=== PATIENT | female | born 1965 ===

== ENCOUNTER 2016-11-22 19:36 | Emergency (ER) | payer SELFPAY ==
[~2016-11-22] VITALS: Ht 162.6 cm; Wt 90.0 kg
[2016-11-22 19:40] VITALS: Ht 162.6 cm; Wt 90.0 kg
[2016-11-22] MEDS ORDERED: EPINEPHrine 1 MG INJ IM STA (19:42)
[2016-11-22] MEDS ORDERED: FAMOTIDINE 20 MG INJ IV STA (19:42)
[2016-11-22] MEDS ORDERED: DIPHENHYDRAMINE 50 MG INJ IV STA (19:42)
[2016-11-22] MEDS ORDERED: METHYLPREDNISOLONE 125 MG INJ IV STA (19:42)
[2016-11-22] MEDS ORDERED: SOD CHLORIDE 0.9% 1,000 ML IV STA ×3 (19:45→23:10)
[2016-11-22 20:17] LABS: BASOPHILS % 0.1 % (0.0-2.0); EOSINOPHILS # 0.1 10^3/ul (0.0-0.5); EOSINOPHILS % 0.9 % (0.0-7.0); HEMATOCRIT 38.4 % (37.0-47.0); HEMOGLOBIN 12.3 g/dl (12.0-16.0); LYMPHOCYTES # 1.1 10^3/ul (0.8-2.9); LYMPHOCYTES % 11.4 % (15.0-51.0); MEAN CORPUSCULAR HEMOGLOBIN 27.6 pg (29.0-33.0); MEAN CORPUSCULAR VOLUME 86.3 fl (82.0-101.0); MONOCYTE # 0.1 10^3/ul (0.3-0.9); MONOCYTES % 1.1 % (0.0-11.0); NEUTROPHIL # 8.3 10^3/ul (1.6-7.5); NEUTROPHILS % 86.3 % (39.0-77.0); PLATELET COUNT 459 10^3/UL (140-415); RED BLOOD COUNT 4.45 10^6/ul (4.20-5.40); RED CELL DISTRIBUTION WIDTH 14.3 % (11.5-14.5); WHITE BLOOD COUNT 9.7 10^3/ul (4.8-10.8)
[2016-11-22 20:47] LABS: CALCIUM 8.9 mg/dl (8.4-10.2); CREATININE 1.12 mg/dl (0.44-1.00); POTASSIUM 3.4 mmol/L (3.5-5.1)
[2016-11-22] MEDS ORDERED: PRED20TA PO (21:10)
[2016-11-22] MEDS ORDERED: EPIN0.3P4 INJ (21:10)
--- NOTE | 2016-11-22 21:31 | ERD ---
ER Documentation Chief Complaint Date/Time DATE: 11/22/16 TIME: 21:30 Chief Complaint Severe Allergic rxn to ibuprofen HPI Patient is a 51-year-old female presents with an allergic reaction. Please note the history and physical exam was limited secondary to the patient's respiratory distress. The patient had a significant allergic reaction after taking ibuprofen at 5 PM. She has a rash all over her body which is red and itchy. It was acute in onset. She was having trouble breathing but had no tongue or throat swelling. She has had no treatment as of yet. Upon review of old medical records this is the patient's first visit to the emergency department. ROS All systems reviewed and are negative except as per history of present illness. Medications Home Meds Active Scripts Epinephrine (Epipen 2-Celso) 0.3 Mg/0.3 Ml Pen.injctr, 1 EA INJ ONCE Y for ALLERGIC REACTION, #1 EA Prov:ESPERANZA HANNA MD 11/22/16 Prednisone* (Prednisone*) 20 Mg Tab, 60 MG PO DAILY for 4 Days, TAB Prov:ESPERANZA HANNA MD 11/22/16 Allergies Allergies: Coded Allergies: Unknown: Unable to obtain (Unverified , 11/22/16) PT ALTERED PMhx/Soc Medical and Surgical Hx: Unable to obtain Hx Alcohol Use: No (UNK) Hx Substance Use: No (unk) Smoking Status: Never smoker FmHx Unable to obtain Physical Exam Vitals Vital Signs Date Time Temp Pulse Resp B/P Pulse Ox O2 Delivery O2 Flow Rate FiO2 11/22/16 19:40 99.9 124 29 150/77 99 11/22/16 19:40 Non Rebreather 15 Physical Exam Const: Moderate distress Head: Atraumatic Eyes: Normal Conjunctiva ENT: Normal External Ears, Nose and Mouth. No tongue or oropharyngeal swelling Neck: Full range of motion..~ No meningismus. No stridor over the neck Resp: Clear to auscultation bilaterally Cardio: Tachycardic rate without murmur Abd: Soft, non tender, non distended. Normal bowel sounds Skin: Diffuse erythema with coalescing urticaria, patient does have chronic eczema Back: No midline or flank tenderness Ext: No cyanosis, or edema Neur: Awake and alert Psych: Anxious Result Diagram: 11/22/16199911/22/161999 Results 24 hrs Laboratory Tests Test 11/22/16 20:00 White Blood Count 9.710^3/ul Red Blood Count 4.4510^6/ul Hemoglobin 12.3g/dl Hematocrit 38.4% Mean Corpuscular Volume 86.3fl Mean Corpuscular Hemoglobin 27.6pg Mean Corpuscular Hemoglobin Concent 32.0g/dl Red Cell Distribution Width 14.3% Platelet Count 24427^3/UL Mean Platelet Volume 10.0fl Neutrophils % 86.3% Lymphocytes % 11.4% Monocytes % 1.1% Eosinophils % 0.9% Basophils % 0.1% Nucleated Red Blood Cells % 0.0/100WBC Neutrophils # 8.310^3/ul Lymphocytes # 1.110^3/ul Monocytes # 0.110^3/ul Eosinophils # 0.110^3/ul Basophils # 0.010^3/ul Nucleated Red Blood Cells # 0.010^3/ul Sodium Level 137mmol/L Potassium Level 3.4mmol/L Chloride Level 108mmol/L Carbon Dioxide Level 20mmol/L Anion Gap 12 Blood Urea Nitrogen 23mg/dl Creatinine 1.12mg/dl Glucose Level 145mg/dl Calcium Level 8.9mg/dl Current Medications Medications (Trade) Dose Ordered Sig/Bear Route PRN Reason Start Time Stop Time Status Last Admin Dose Admin Diphenhydramine HCl (Benadryl) 50 mg ONCE STAT IV 11/22/16 19:42 11/22/16 19:43 DC 11/22/16 19:56 Epinephrine (EPINEPHrine) 0.3 mg ONCE STAT IM 11/22/16 19:42 11/22/16 19:43 DC 11/22/16 19:57 Famotidine (Pepcid Iv) 20 mg ONCE STAT IV 11/22/16 19:42 11/22/16 19:43 DC 11/22/16 19:42 Methylprednisolone Sodium Succinate 125 mg 125 mg ONCE STAT IV 11/22/16 19:42 11/22/16 19:43 DC 11/22/16 19:56 Sodium Chloride (NS) 1,000 ml @ 1,000 mls/hr Q1H STAT IV 11/22/16 19:45 11/22/16 20:44 DC 11/22/16 19:56 Procedures/MDM EKG read by me: Rate/Rhythm: Sinus tachycardia at a rate of 117 Intervals: Normal Impression: Sinus tachycardia without ischemia Patient is a 51-year-old female who presents with what appears to be acute anaphylaxis. The patient was given epinephrine, Solu-Medrol, Benadryl, and Pepcid. The patient improved dramatically and is now feeling much better. She was watched in the emergency department for over 2 hours and then was deemed stable for discharge. The patient was instructed not to take ibuprofen again in the future as it seem like she had a significant reaction to ibuprofen. I doubt Nagel-Jack syndrome at this time. The patient will be given a prescription for 4 more days of prednisone as well as an EpiPen for cases of life-threatening allergic reaction or anaphylaxis. The patient will be discharged and can return for any worsening symptoms. She will need to follow- up with primary doctor within 24-48 hours. She may benefit from outpatient allergy consultation. Critical Care: Time: 35 minutes excluding all billable procedures. Treatments/Evaluations: Close monitoring and treatment of unstable vital signs, cardiorespiratory, and neurologic status, while maintaining tight balance of fluid, respiratory, and cardiac interventions. Departure Diagnosis: Primary Impression: Acute anaphylaxis Encounter type: initial encounter Qualified Code: T78.2XXA - Acute anaphylaxis, initial encounter Condition: Fair Patient Instructions: Anaphylaxis, General Referrals: Your doctor Additional Instructions: Llame al doctor MAANA y tom cristiana ELENA PARA DENTRO DE 1-2 OVIEDO.Dgale a la secretaria que nosotros le instruimos hacer esta elena.Avise o llame si abraham condicin se empeora antes de la elena. Regresa aqui si peor o no mejor. ESPERANZA HANNA MD Nov 22, 2016 21:31
[2016-11-22] MEDS ORDERED: ACETAMINOPHEN 325 MG TAB PO ONE (23:30)
[2016-11-22 23:35] VITALS: BP 113/56; PULSE 94; RESP 20; TEMP 99.4
== END 2016-11-22 23:38 | disposition home or self-care (01) ==
LOC: E/R 19:36
DX: T78.2XXA Anaphylactic shock, unspecified, initial encounter (principal); R40.2352 Coma scale, best motor response, localizes pain, at arrival to emergency department; R40.2142 Coma scale, eyes open, spontaneous, at arrival to emergency department; R40.2242 Coma scale, best verbal response, confused conversation, at arrival to emergency department
CPT/HCPCS: 80048; 85025; 96372; 96374; 96375; 99284; J7030; 93005